=== PATIENT | female | born 1990 | race Caucasian/White ===

== ENCOUNTER → 2019-03-14 | Day surgery (SDC) | payer OTHER ==
--- NOTE | 2019-03-12 12:00 | Diagnostic Imaging Report ---
EXAMINATION: CHEST 2 VIEWS INDICATION: Pre-operative COMPARISON: None FINDINGS: LINES/TUBES:None LUNGS:The lungs are well-inflated. No focal consolidation or pulmonary edema. PLEURA:No pleural effusion or pneumothorax. MEDIASTINUM:The cardiomediastinal silhouette appears normal in size and shape. BONES/SOFT TISSUES:No acute osseous injury. ABDOMEN:No free air under the diaphragm. Status post cholecystectomy. IMPRESSION: No focal pneumonia or pulmonary edema. Signed by: Alana Allen MD on 03/12/2019 11:57 AM
[~2019-03-14] MED LIST: BUPIVACAINE HCL 0.5% INJ 30 ML VIAL INJ ONE; CEFAZOLIN SOD 1 GM/NS 50ML 50 ML IV ONE; DEXAMETHASONE SOD PHOS INJ 4 MG/ML VIAL ONE; FENTANYL CITRATE/PF 100MCG/2 ML INJ ONE; KETOROLAC TROMETHAMINE 30 MG/ML VIAL ONE; LIDOCAINE HCL 2% LOCAL INJ 5 ML SDV VIAL INJ ONE; MIDAZOLAM HCL 2 MG/2 ML VIAL ONE; NAPROXEN250 MG PO; ONDANSETRON HCL INJ 2MG/ML 2ML 2 MG/ML VIAL ONE; PROPOFOL IV EMULSION 10 MG/ML 20 ML VIAL ONE; SEVOFLURANE INHAL SOLN 250 ML PEN BTL ONE
--- OUTSIDE RECORDS SUMMARY | 2019-03-14 05:11 | XMS REPORT ---
Author Author [email or web address] Address Unknown Phone Unavailable Care Team Providers Care Service Station Manager Name Role Phone Ihsan MARTÍNEZ Unavailable Unavailable Payers Payer Name Policy Type Policy Number Effective Date Expiration Date Problems This patient has no known problems. Allergies, Adverse Reactions, Alerts Allergy Name Allergy Type Status Severity Reaction(s) Onset Date Inactive Date Treating Clinician Comments morphine DA Active U 2018-04-14 00:00:00 morphine DA Active U 2017-12-19 00:00:00 Medications This patient has no known medications. Results Test Description Test Time Test Comments Text Results Atomic Results Result Comments CHEST 2 VIEWS 2019-03-12 11:56:00 [place] [address] Patient Name: SHAKIR SORIA MR #: [id number] : 1990 Age/Sex: 28/F Req #: [id number] Adm Physician: Ordered by: ANIRUDH MARTÍNEZ DPM Report #: [id number] Location: OR Room/Bed: Procedure: [id number] DX/CHEST 2 VIEWS Exam Date: Exam Time: REPORT STATUS: Signed EXAMINATION: CHEST 2 VIEWS INDICATION: Pre-operative COMPARISON: None FINDINGS: LINES/TUBES:None LUNGS:The lungs are well- inflated. No focal consolidation or pulmonary edema. PLEURA:No pleural effusion or pneumothorax. MEDIASTINUM:The cardiomediastinal silhouette appears normal in size and shape. BONES/SOFT TISSUES:No acute osseous injury. ABDOMEN:No free air under the diaphragm. Status post cholecystectomy. IMPRESSION: No focal pneumonia or pulmonary edema. Signed by: Laura Eddy MD on 03/12/2019 11:57 AM Dictated By: LAURA EDDY MD 1151 Transcribed By: DEVIN on 03/12/19 1155 COPY TO: ANIRUDH MARTÍNEZ DPM - XR ANKLE 3 + V RT 2019-01-14 11:17:00 [place]: St: PRE Name: SHAKIR SORIA [facility] : 1990 Age/S: 28/F [address] [place] [address] Unit #: [id number] Loc: [place] [address] Phys: Aurelio Bryant MD Acct: [id number] Dis Date: Status: PRE ER PHONE #: [phone] Exam Date: 01/14/2019 1107 FAX #: [phone] Reason: INVERTED ANKLE EXAMS: CPT CODE: [id number] XR ANKLE 3 + V RT [id number] Clinical Indication: Inverted ankle. Comparison: 05/09/2008. Impression: Right ankle, 3 views. No acute fracture or dislocation. Moderate soft tissue swelling over both malleoli. SL: [id number] at 1117 Reported and signed by: Corinne Fay M.D. CC: Technologist: RT Franco(Keily) Trnscrd Date/Time/By: 01/14/2019 (1117) : By: [email or web address] Orig Print D/T: S: 01/14/2019 (1120) PAGE 1 Signed Report BREAST ULTRASOUND CORE BIOPSY RIGHT 2018-09-27 15:15:56 - BREAST ULTRASOUND CORE BIOPSY RIGHTULTRASOUND GUIDED BIOPSY RIGHT BREAST WITH MARKING DEVICE INSERTED: 09/25/2018CLINICAL: Ultrasound biopsy, right breast. Comparison is made to exams dated 09/13/2018 ultrasound, 09/13/2018 mammogram - [facility]-, and 09/02/2018 ultrasound - [facility]. An ultrasound guided biopsy using real-time ultrasound was performed for the mass located in the right breast central to the nipple in the retroareolar region. The skin was prepped in the usual manner. Local anesthetic was administered to the access site. A 14 gauge biopsy needle was placed adjacent to the abnormality under ultrasound guidance. Once the needle was documented to be in the correct location, multiple specimens were obtained using an automated biopsy gun. A clip was inserted into the biopsy cavity. The specimens were sent to the laboratory for pathological analysis. IMPRESSION: ULTRASOUND GUIDED BIOPSY HIGH RISK BENIGN Ultrasound guided biopsy of the mass in the right breast central to the nipple in the retroareolar region was successful with no apparent post procedure complications. 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 RECOMMENDATION:A subareolar ductal resection is recommended. Maggy Eden M.D. dm/:09/27/2018 15:15:56 Entry: - 09/28/2018 10:28:28Imaging Technologist: Kassandra MCQUEEN, [facility]-FWletter sent: Surgical Consult [facility] BREAST ULTRASOUND BILATERAL 2018-09-13 14:54:34 - DIAG MAMM BILATERAL MARV CAD DIGITALBILATERAL FIRST EVER DIGITAL DIAGNOSTIC MAMMOGRAM 3D/2D WITH CAD: 09/13/2018CLINICAL: Nipple abnormalitiy. Digital breast tomosynthesis was performed in addition to routine CC and MLO views. Current mammographic images were evaluated by either a Off Track Planet M-Vu or a Proximic ImageChecker CAD (computer aided detection system). No prior exams were available for comparison. There are scattered fibroglandular tissues in both breasts. No suspicious mass, architectural distortion, malignant type calcification, or lymph node abnormality detected. INCOMPLETE ASSESSMENT: ADDITIONAL IMAGING EVALUATION RECOMMENDEDUltrasound pending for additional evaluation. - BREAST ULTRASOUND BILATERALULTRASOUND OF BOTH BREASTS AND BOTH AXILLA: 09/13/2018No prior exams were available for comparison. Real-time ultrasound of both breasts and both axilla was performed. There is a 1 cm mass in the right nipple. Color flow imaging demonstrates that there is increased vascularity. No abnormalities were seen sonographically in the left breast or either axilla. IMPRESSION: SUSPICIOUS OF MALIGNANCY - FOLLOW-UP RECOMMENDEDThe 1 cm mass in the right nipple needs histological evaluation. An ultrasound guided biopsy is recommended. Results were discussed with the patient.Maggy Eden M.D. dm/:09/13/2018 14:54:34 Entry: - 09/18/2018 11:30:54Imaging Technologist: Elizabeth MCQUEEN, [facility]-FWletter sent: BIRADS 4/5 Biopsy Mammogram BI-RADS: 0 Indeterminate Ultrasound BI-RADS: 4 Suspicious abnormality DIAG MAMM BILATERAL MARV CAD DIGITAL 2018-09-13 14:54:34 - DIAG MAMM BILATERAL MARV CAD DIGITALBILATERAL FIRST EVER DIGITAL DIAGNOSTIC MAMMOGRAM 3D/2D WITH CAD: 09/13/2018CLINICAL: Nipple abnormalitiy. Digital breast tomosynthesis was performed in addition to routine CC and MLO views. Current mammographic images were evaluated by either a [employer] Track Planet M-Vu or a Proximic ImageChecker CAD (computer aided detection system). No prior exams were available for comparison. There are scattered fibroglandular tissues in both breasts. No suspicious mass, architectural distortion, malignant type calcification, or lymph node abnormality detected. INCOMPLETE ASSESSMENT: ADDITIONAL IMAGING EVALUATION RECOMMENDEDUltrasound pending for additional evaluation. - BREAST ULTRASOUND BILATERALULTRASOUND OF BOTH BREASTS AND BOTH AXILLA: 09/13/2018No prior exams were available for comparison. Real-time ultrasound of both breasts and both axilla was performed. There is a 1 cm mass in the right nipple. Color flow imaging demonstrates that there is increased vascularity. No abnormalities were seen sonographically in the left breast or either axilla. IMPRESSION: SUSPICIOUS OF MALIGNANCY - FOLLOW-UP RECOMMENDEDThe 1 cm mass in the right nipple needs histological evaluation. An ultrasound guided biopsy is recommended. Results were discussed with the patient.Maggy Eden M.D. dm/:09/13/2018 14:54:34 Entry: - 09/18/2018 11:30:54Imaging Technologist: Elizabeth MCQUEEN [facility]-FWletter sent: BIRADS 4/5 Biopsy Mammogram BI-RADS: 0 Indeterminate Ultrasound BI-RADS: 4 Suspicious abnormality - US SOFT TISSUE TORSO 2018-09-02 13:51:00 Name: ESTELLASHAKIR [facility] : 1990 Age/S: 28 / F [address] [place] [address] Bl Unit #: [id number] Loc: [place] [address] Phys: Nancy Meza Acct: [id number] Dis Date: Status: REG ER PHONE #: [phone] Exam Date: 09/02/2018 1347 FAX #: [phone] Reason: redness/induration, swelling w lymphangitis r b EXAMS: CPT CODE: [id number] US SOFT TISSUE TORSO 37099 PROCEDURE: NONVASCULAR SOFT TISSUE ULTRASOUND INDICATION: 28-year-old female with complaint of right breast pain. redness/induration, swelling w lymphangitis r breast COMPARISON: None. TECHNIQUE: Sonographic evaluation of the right breast was performed using high resolution B-mode imaging, with supplemental Doppler imaging. Focused survey of region of concern periareolar tissues. Please note this does not constitute a screening survey of the breast. FINDINGS: Elliptical shaped hypoechoic mass in the superficial subareolar tissues measuring 1.8 x 0.4 x 1.3 cm. Heterogeneous echogenicity with components of moderate and marked decreased echogenicity. No internal vascularity demonstrated. No gross regional inflammatory change. No other abnormality demonstrated. IMPRESSION: 1. Heterogeneous hypoechoic mass subareolar right breast in region of concern. Inflammatory mass including phlegmon and neoplasm included in the differential. No definite abscess. SL: [id number] at 1351 Reported and signed by: Catrachito Gaston M.D. CC: Nancy Meza Technologist: Sara Mace RDMS(AB)(OB) Trnscb Date/Time: 09/02/2018 (0704) [place] Orig Print D/T: S: 09/02/2018 (8348) Probe: PAGE 1 Signed Report BASIC METABOLIC PANEL 2018-09-02 13:02:00 SODIUM (test code=NA) 139 mEq/L 134-147 POTASSIUM (test code=K) 3.9 mEq/L 3.4-5.0 CHLORIDE (test code=CL) 109 mEq/L 100-108 CARBON DIOXIDE (test code=CO2) 26 mEq/L 21-33 ANION GAP (test code=GAP) 8 0-20 GLUCOSE (test code=GLU) 94 mg/dL 70-110 BLOOD UREA NITROGEN (test code=BUN) 10 mg/dL 7-18 GLOMERULAR FILTRATION RATE (test code=GFR) 99.6 110-120 Units of measure=ml/min/1.73 m2 CREATININE (test code=CREAT) 0.7 mg/dL 0.6-1.3 CALCIUM (test code=CA) 8.6 mg/dL 8.0-10.5 CBC W/AUTO [id number] 12:47:00* Test Item Value Reference Range Comments WHITE BLOOD CELL (test code=WBC) 8.68 x10 3/uL 4.5-11.0 RED BLOOD CELL (test code=RBC) 4.82 x10 6/uL 3.54-5.02 HEMOGLOBIN (test code=HGB) 14.6 g/dL 11.0-15.0 HEMATOCRIT (test code=HCT) 44.4 % 33.0-45.0 MEAN CELL VOLUME (test code=MCV) 92.1 fL 81.0-99.0 MEAN CELL HGB (test code=MCH) 30.3 pg 27.0-33.0 MEAN CELL HGB CONCETRATION (test code=MCHC) 32.9 g/dL 33.0-37.0 RED CELL DISTRIBUTION WIDTH CV (test code=RDW) 13.2 % 11.5-14.5 RED CELL DISTRIBUTION WIDTH SD (test code=RDW-SD) 44.4 fL 37.0-54.0 PLATELET COUNT (test code=PLT) 305 x10 3/uL 150-400 MEAN PLATELET VOLUME (test code=MPV) 10.6 fL 7.0-9.0 NEUTROPHIL % (test code=NT%) 61.2 % 56.0-77.0 IMMATURE GRANULOCYTE % (test code=IG%) 0.2 % 0.0-2.0 LYMPHOCYTE % (test code=LY%) 21.9 % 14.0-32.0 MONOCYTE % (test code=MO%) 7.3 % 4.8-9.0 EOSINOPHIL % (test code=EO%) 8.5 % 0.3-3.7 BASOPHIL % (test code=BA%) 0.9 % 0.0-2.0 NUCLEATED RBC % (test code=NRBC%) 0.0 % 0-0 NEUTROPHIL # (test code=NT#) 5.31 x10 3/uL 2.0-7.6 IMMATURE GRANULOCYTE # (test code=IG#) 0.02 x10 3/uL 0.00-0.03 LYMPHOCYTE # (test code=LY#) 1.90 x10 3/uL 1.0-3.8 MONOCYTE # (test code=MO#) 0.63 x10 3/uL 0.1-0.8 EOSINOPHIL # (test code=EO#) 0.74 x10 3/uL 0.0-0.2 BASOPHIL # (test code=BA#) 0.08 x10 3/uL 0.0-0.2 NUCLEATED RBC # (test code=NRBC#) 0.00 x10 3/uL 0.0-0.1 MANUAL DIFF REQUIRED (test code=MDIFF) NO
[2019-03-14 08:05] VITALS: BP 106/69
--- NOTE | 2019-03-14 11:31 | Operative Report ---
DATE OF PROCEDURE: 03/14/2019 SURGEON: Cr Calvert DPM PREOPERATIVE DIAGNOSIS: Right lateral ankle ligament rupture. POSTOPERATIVE DIAGNOSIS: Right lateral ankle ligament rupture. PLANNED PROCEDURE: Right Brostrom lateral ankle reconstruction. CHROME TANNER: None. ANESTHESIA: General with a postoperative block consisting of 15 mL of 0.5% Marcaine plain mixed with 1 mL of dexamethasone phosphate. HEMOSTASIS: Pneumatic thigh tourniquet set at 350 mmHg for a total time of approximately 30 minutes. MATERIALS: One G2 bone anchor, 0 Ethibond, 3-0 Vicryl, and 3-0 nylon. ESTIMATED BLOOD LOSS: Less than 10 mL. PATHOLOGY: None. PROCEDURE NOTE: The patient was seen in the preoperative waiting room, where the correct procedure and site was identified. The patient was brought into the operating room and placed on the operating table in the supine position. General anesthesia was initiated. At this time, a well-padded pneumatic tourniquet was placed about the patient's right thigh. The right foot, ankle, and leg was scrubbed, prepped, and draped in the usual aseptic manner. The right foot, ankle, and leg was exsanguinated with an Esmarch bandage and the pneumatic thigh tourniquet was inflated to 350 mmHg for a total time of approximately 30 minutes. Attention was directed to the lateral aspect of the patient's right ankle, where an inverted J-incision was made extending at the anterior aspect of the distal fibula. The incision was carried through subcutaneous tissue them from deep or underlying structures. All vital and neurovascular structures were identified and retracted medially and laterally, and all bleeders were cauterized or ligated as deemed necessary. At this time, the incision was carried down to the level of the lateral ankle joint capsule ligaments. It should be noted that there was moderate hematoma and inflammation to the area. Upon exploration of the incision, there was noted to be frayed ankle joint capsule as well as the anterior talofibular ligament. Utilizing a #15 blade, this was incised along the same line as the incision site. There was noted to be a moderate amount of joint fluid. At this time, an incision was made directly over the distal fibula. Periosteum was reflected to allow for good visualization of the distal tip of the fibula. Utilizing intraoperative fluoroscopy, the correct location was determined for bone anchor. Utilizing manufacture protocol, one G2 bone anchor was placed into the distal aspect of the fibula and locked into place. Utilizing a suture that came with the anchor, the ATFL was repaired intact into the fibula and while holding the foot in a dorsiflexed and everted position. The Pardo modification was performed utilizing [id number] suture with 0 Ethibond. Prior to this, the wound was copiously irrigated with sterile saline. Deep tissue was reapproximated with 3-0 Vicryl, subcutaneous tissue with 3-0 Vicryl, and the skin was closed using simple interrupted sutures with 3-0 nylon. The incision site was then dressed with Adaptic, 4x4s, Kerlix, Webril, 4 x 30 posterior splint and two 4-inch Colt wraps. The patient tolerated the procedure and anesthesia well. The patient was transferred to the postoperative recovery unit with vital signs stable and vascular status intact. The patient was monitored there for a short period of time before being sent home with the following written and oral instructions: 1. Keep the dressing clean, dry, and intact. 2. The patient is to remain nonweightbearing to the right lower extremity to avoid any ambulation until being seen in the office. 3. The patient is given the office number and instructed to contact us if any problems arise. JAE Ryan/DEMETRIUS /[id number]
== END | disposition home or self-care (01) ==
LOC: OR 05:02
PROVIDERS: ATTEND Podiatrist Foot & Ankle Surgery
DX: S93.491A Sprain of other ligament of right ankle, initial encounter (principal); F17.210 Nicotine dependence, cigarettes, uncomplicated; X58.XXXA Exposure to other specified factors, initial encounter; Z88.6 Allergy status to analgesic agent; Z01.810 Encounter for preprocedural cardiovascular examination; Z01.818 Encounter for other preprocedural examination
CPT/HCPCS: 27695; 71046; 81025; 93005; C1713; J0690; J1100; J1885; J2001; J2250; J2405; J2704; J3010